=== PATIENT | female | born 1955 | race Hispanic/Latino ===

== ENCOUNTER 2017-01-13 11:27 | Day surgery (SDC) | payer OTHER ==
[2015-03-25 13:29] VITALS: BMI 29.0
[2017-01-13] MEDS ORDERED: Bupivacaine 0.25%-Epinephrine 1:200,000 (30 ml) Inj ONE (12:28)
[2017-01-13] MEDS ORDERED: Lidocaine 1% Inj (20ml) ONE (12:28)
--- NOTE | 2017-01-13 12:54 | CP.SDSHP ---
Same Day Surgery H & P - History Proposed Procedure: Excision of lipoma on the back Pre-Op Diagnosis: lipoma of the back - Previous Medical/Surgical History Cardiac: Hypertension Pulmonary: Asthma Endocrine/Metabolic: Thyroid Disease Pain: 0. No Pain - Allergies Allergies: Allergies No Known Allergies Allergy (Verified 03/25/15 13:30) - Current Medications Current Medications: Xanax, PPI, Synthroid - Physical Exam General Appearance: NAD Vital Signs: Vital Signs 01/13/17 01/13/17 11:49 11:59 Temperature 98.7 F Pulse Rate 74 74 Respiratory 18 Rate Blood Pressure 149/87 O2 Sat by Pulse 95 Oximetry Mental Status: Alert & Oriented x3 Neuro: WNL Heart: WNL Lungs: WNL GI: WNL - {Optional Preform as Required} Breast: WNL Abdomen: WNL Integument: Other (10cm x5cm x3cm mass on the back. No erythema .) - Date & Time Date: 01/13/17 Time: 12:54 Short Stay Discharge - Short Stay Discharge Admitting Diagnosis/Reason for Visit: D17.9 Disposition: HOME/ ROUTINE Referrals: Delvis Carlson MD [Primary Care Provider] - Follow-up: Follow up with in 1-2 weeks Ok to take shower tomorrow. Keep dermabond on. Take pain med as needed. Instructions: Liposarcoma (DC)
[2017-01-13] MEDS ORDERED: Lidocaine 1% Inj (20ml) IJ ONE ×2 (13:00)
--- NOTE | 2017-01-13 13:47 | PCM.SURG1 ---
Surgeon's Initial Post Op Note - Surgeon's Notes Surgeon: Dr. Brink Senior Telecommunications Technician: Aiyana Morris PGY 2, Joanna PGY1 Type of Anesthesia: Local Pre-Operative Diagnosis: Back lump Operative Findings: Thicken subcutaneous fat Post-Operative Diagnosis: Thicken subcutaneous fat Operation Performed: Incision of back skin Specimen/Specimens Removed: None Estimated Blood Loss: EBL {In ML}: 5 Blood Products Given: N/A Drains Used: No Drains Post-Op Condition: Good Date of Surgery/Procedure: 01/13/17 Time of Surgery/Procedure: 13:47
[2017-01-13] MEDS ORDERED: Oxycodone/Acetaminophen 5/325 mg Tab PO PRN (13:48)
[2017-01-13 13:56] VITALS: BP 100/59; PULSE 72; RESP 18; TEMP 98.1; O2SAT 98
--- NOTE | 2017-01-15 12:28 | OP ---
PROCEDURE DATE: 01/13/2017 PREOPERATIVE DIAGNOSIS: Mass, upper back. POSTOPERATIVE DIAGNOSIS: Dystrophic type distribution, upper back. PROCEDURE: Exploration of upper back. SURGEON: Joni Brink MD ALIGNMENT SPECIALIST: Dr. Morris and Dr. Marshall. TYPE OF ANESTHESIA: Local 1% lidocaine. DESCRIPTION OF PROCEDURE: The patient was placed in a prone position. The upper back was prepped and draped in the usual sterile manner. There was noted to be localized swelling in the midline of the upper back with suggestion of a possible lipoma. The skin overlying this area was infiltrated with 1% lidocaine and incision was transversely taken down through the full thickness of skin. Within the subcutaneous layer, tissue was palpated and no encapsulated lipoma was identified, only excessive fatty tissue consistent with a buffalo hump type fat distribution. The muscle was palpated as well and no submuscular lipoma was identified either. At this point, the patient was closed with running cuticular suture of 4-0 Monocryl and surgical glue. The patient tolerated the procedure well and transferred to recovery room in stable condition. Joni Brink MD
== END 2017-01-13 14:05 | disposition home or self-care (01) ==
LOC: H.OPSURG 11:27
PROVIDERS: ATTEND Specialist
DX: D17.9 Benign lipomatous neoplasm, unspecified (principal)
CPT/HCPCS: 11400; J7030